=== PATIENT | female | born 1965 | race Two or more races ===

== ENCOUNTER 2022-01-31 19:15 | Emergency (ER) | payer OTHER ==
[2022-01-31] MEDS ORDERED: KETOROLAC TROMETHAMINE 60 MG/2 ML VIAL IM ONE (19:51)
[2022-01-31] MEDS ORDERED: KETOROLAC TROMETHAMINE 60 MG/2 ML VIAL ONE (19:59)
[2022-01-31 20:23] VITALS: PULSE 65; RESP 18; TEMP 98.1; BMI 51.0
[2022-01-31] MEDS ORDERED: CEFTRIAXONE 1,000 MG in DEXTROSE 5%-WATER - 50 ML IVPB ONE (22:00)
[2022-01-31] MEDS ORDERED: AZITHROMYCIN 500 MG TABLET PO ONE (22:04)
[2022-01-31] MEDS ORDERED: AZITHROMYCIN 500 MG VIAL IVPB ONE (22:13)
[2022-01-31] MEDS ORDERED: cefTRIAXone SODIUM 1 GM VIAL ONE (22:13)
[2022-01-31] MEDS ORDERED: AZITHROMYCIN 250 MG TABLET ONE (22:14)
[2022-01-31] MEDS ORDERED: guaiFENesin/CODEINE 10 ML UNIT-DOSE CUPS PO ONE (22:30)
[2022-01-31] MEDS ORDERED: guaiFENesin/CODEINE 10 ML UNIT-DOSE CUPS ONE (22:34)
[2022-01-31 23:29] VITALS: BP 199/105
== END 2022-01-31 23:29 | disposition home or self-care (01) ==
LOC: FER 19:15
PROC: 3E033GC Introduction of Other Therapeutic Substance into Peripheral Vein, Percutaneous Approach (ICD-10-PCS; principal; 2022-01-31)
PROC: 3E023GC Introduction of Other Therapeutic Substance into Muscle, Percutaneous Approach (ICD-10-PCS; principal; 2022-01-31)
DX: J18.9 Pneumonia, unspecified organism (principal); R07.1 Chest pain on breathing
CPT/HCPCS: 71046-TC-FY; 71101-TC-RT-FY; 99284-25